=== PATIENT | male | born 1980 | race Caucasian/White ===

== ENCOUNTER 2025-05-10 16:44 | Emergency (ER) | payer MEDICAID ==
[~2025-05-10] VITALS: Ht 177.8 cm; Wt 100.0 kg
[~2025-05-10 16:44] MED LIST: antibiotics
[2025-05-10 16:48] VITALS: O2SAT 99
[2025-05-10] MEDS: IBUPROFEN 800MG TABLET PO ONE (18:16)
[2025-05-10] MEDS: OXYCODONE HCL/ACETAMINOPHEN 5/325MG TABLET PO ONE (18:17)
[2025-05-10] MEDS ORDERED: OXYC-100 MT (19:13)
[2025-05-10] MEDS ORDERED: IBUP-2030 MT (19:13)
[2025-05-10 19:39] VITALS: BP 151/93; PULSE 83; RESP 20; TEMP 36.8; O2SAT 99
== END 2025-05-10 19:40 | disposition home or self-care (01) ==
LOC: ER 16:44
DX: S22.42XA Multiple fractures of ribs, left side, initial encounter for closed fracture (principal); R55 Syncope and collapse; F19.90 Other psychoactive substance use, unspecified, uncomplicated; W31.89XA Contact with other specified machinery, initial encounter; Y93.89 Activity, other specified; Y92.89 Other specified places as the place of occurrence of the external cause; Y99.8 Other external cause status
CPT/HCPCS: 71045; 71250; 74176; 93005; 99284; A4606